=== PATIENT | female | born 1965 | race Caucasian/White ===

== ENCOUNTER → 2017-06-05 | Outpatient (CLI) | payer OTHER | END | disposition home or self-care (01) | LOC: CFH 10:33 | PROVIDERS: ATTEND Physician Assistant | DX: K86.89 Other specified diseases of pancreas (principal); Z87.442 Personal history of urinary calculi | CPT/HCPCS: 74000 ==

== ENCOUNTER → 2017-06-09 | Outpatient (CLI) | payer OTHER | END | disposition home or self-care (01) | LOC: CFH 14:44 | PROVIDERS: ATTEND Family Medicine | DX: R91.8 Other nonspecific abnormal finding of lung field (principal); R94.5 Abnormal results of liver function studies | CPT/HCPCS: 76536 ==

== ENCOUNTER → 2017-10-10 | Outpatient (CLI) | payer OTHER ==
[~2017-10-10] MED LIST: OMNIPAQUE 350 MG/ML, 100ML BOTTLE ONE
== END ==
LOC: CFH 09:14
PROVIDERS: ATTEND Family Medicine
DX: K86.1 Other chronic pancreatitis (principal); N26.1 Atrophy of kidney (terminal); M51.37 Other intervertebral disc degeneration, lumbosacral region
CPT/HCPCS: 74177; Q9967

== ENCOUNTER 2017-10-26 06:28 | Day surgery (SDC) | payer OTHER ==
[~2017-10-26] VITALS: Ht 149.9 cm; Wt 66.0 kg
[~2017-10-26 06:28] MED LIST changes: +CALC-76 PO; +CHOL100012 PO; +KRIL1CAP31 PO; +LEVO50TA5 PO; +LIPA1CAP45 PO; +MAGN400C PO; +MELA5TAB10 SL; -OMNIPAQUE 350 MG/ML, 100ML BOTTLE ONE; +POTA5TAB2 PO; +SERT50TA5 PO; +VITA1TAB19 PO
[2017-10-26] MEDS ORDERED: LACTATED RINGERS 1,000 ML IV SCH (07:13)
[2017-10-26 07:19] VITALS: BP 132/81
[2017-10-26] MEDS ORDERED: MIDAZOLAM 1 MG/ML, 2ML ONE (07:48)
[2017-10-26] MEDS ORDERED: FENTANYL PF 100 MCG/2ML ONE (07:48)
[2017-10-26] MEDS ORDERED: hydrALAzine 20 MG/ML, 1ML IV PRN (09:30)
[2017-10-26] MEDS ORDERED: ONDANSETRON 2MG/ML, 2ML IVPush PRN (09:30)
[2017-10-26] MEDS ORDERED: FENTANYL PF 100 MCG/2ML IV PRN (09:30)
[2017-10-26] MEDS ORDERED: OXYcodone 5 MG/5 ML ORAL.SOL UDC PO PRN (09:30)
[2017-10-26] MEDS ORDERED: LABETALOL 5MG/ML, 20ML IV PRN (09:30)
[2017-10-26] MEDS ORDERED: METOCLOPRAMIDE 5 MG/ML, 2ML IV PRN (09:30)
[2017-10-26] MEDS ORDERED: HYDROmorphone 1 MG/ML, 1ML IV PRN (09:30)
[2017-10-26] MEDS ORDERED: ACETAMINOPHEN 325 MG TABLET PO PRN (09:30)
[2017-10-26] MEDS ORDERED: INDOMETHACIN 50 MG SUPP.RECT ONE (10:26)
[2017-10-26] MEDS ORDERED: INDOMETHACIN 50 MG SUPP.RECT PR ONE (10:45)
[2017-10-26] MEDS ORDERED: ONDANSETRON 2MG/ML, 2ML ONE (10:51)
[2017-10-26] MEDS ORDERED: morphine SULFATE 10 MG/ML, 1ML ONE (12:55)
[2017-10-26] MEDS ORDERED: MORPHINE SULFATE 4 MG/ML, 1ML IVPush PRN (13:00)
[2017-10-26] MEDS ORDERED: PROPOFOL 10 MG/ML, 20ML ONE (16:36)
[2017-10-26] MEDS ORDERED: SUCCINYLCHOLINE 20 MG/ML, 10ML ONE (16:36)
== END 2017-10-26 14:25 | disposition home or self-care (01) ==
LOC: OUT 06:28
PROVIDERS: ATTEND Internal Medicine Gastroenterology
DX: K86.1 Other chronic pancreatitis (principal); K86.89 Other specified diseases of pancreas; K29.50 Unspecified chronic gastritis without bleeding; Z88.1 Allergy status to other antibiotic agents; Z88.8 Allergy status to other drugs, medicaments and biological substances; Z90.710 Acquired absence of both cervix and uterus; Z98.890 Other specified postprocedural states; Z72.89 Other problems related to lifestyle; Z87.891 Personal history of nicotine dependence
CPT/HCPCS: 43239; 43259; 43274; 74330; 88305; C1769; C1894; C2625; J0330; J2250; J2405; J2704; J3010; J7120

== ENCOUNTER → 2017-11-02 | Outpatient (CLI) | payer OTHER | LOC: CFH 06:51 | PROVIDERS: ATTEND Internal Medicine Gastroenterology | DX: K86.89 Other specified diseases of pancreas (principal); N26.1 Atrophy of kidney (terminal); Z88.8 Allergy status to other drugs, medicaments and biological substances | CPT/HCPCS: 74181 ==

== ENCOUNTER → 2017-12-29 | Outpatient (CLI) | payer OTHER | LOC: CFH 13:29 | PROVIDERS: ATTEND Family Medicine | DX: K86.89 Other specified diseases of pancreas (principal); K86.1 Other chronic pancreatitis | CPT/HCPCS: 74018 ==

== ENCOUNTER → 2018-06-08 | Outpatient (CLI) | payer OTHER | END | disposition home or self-care (01) | LOC: CFH 12:05 | PROVIDERS: ATTEND Obstetrics & Gynecology Gynecology | DX: Z12.31 Encounter for screening mammogram for malignant neoplasm of breast (principal) | CPT/HCPCS: 77067 ==

== ENCOUNTER 2019-04-12 12:06 | Outpatient (CLI) | payer OTHER ==
[~2019-04-12 12:06] MED LIST changes: +SERT50TA28 PO; -SERT50TA5 PO
== END 2019-04-12 23:59 | disposition home or self-care (01) ==
LOC: CFH 12:06
PROVIDERS: ATTEND Urology
DX: K86.89 Other specified diseases of pancreas (principal); I87.8 Other specified disorders of veins; Z98.890 Other specified postprocedural states
CPT/HCPCS: 74018

== ENCOUNTER 2019-07-12 12:05 | Outpatient (CLI) | payer OTHER | END 2019-07-12 23:59 | disposition home or self-care (01) | LOC: CFH 12:05 | PROVIDERS: ATTEND Obstetrics & Gynecology Gynecology | DX: Z12.31 Encounter for screening mammogram for malignant neoplasm of breast (principal) | CPT/HCPCS: 77067 ==

== ENCOUNTER → 2019-08-30 | Outpatient (CLI) | payer OTHER | END | disposition home or self-care (01) | LOC: RAD 13:25 | PROVIDERS: ATTEND Family Medicine | DX: M19.042 Primary osteoarthritis, left hand (principal); M19.041 Primary osteoarthritis, right hand ==

== ENCOUNTER → 2020-07-27 | Outpatient (CLI) | payer OTHER | END | disposition home or self-care (01) | LOC: CFH 15:21 | PROVIDERS: ATTEND Obstetrics & Gynecology Gynecology | DX: Z12.31 Encounter for screening mammogram for malignant neoplasm of breast (principal) | CPT/HCPCS: 77063; 77067 ==

== ENCOUNTER → 2021-04-01 | Outpatient (CLI) | payer OTHER | END | disposition home or self-care (01) | LOC: CFH 09:22 | PROVIDERS: ATTEND Physician Assistant | DX: N20.0 Calculus of kidney (principal); Z87.442 Personal history of urinary calculi | CPT/HCPCS: 74018 ==